=== PATIENT | female | born 1985 ===

== ENCOUNTER 2019-01-15 13:15 | Inpatient (IN) | payer OTHER ==
[~2019-01-15] VITALS: Ht 40.6 cm; Wt 2.7 kg
[2019-01-19] MEDS ORDERED: IBUPROFEN800 MG PO (06:45)
[2019-01-19] MEDS ORDERED: SIMETHICONE125 M1 PO (06:45)
== END 2019-01-19 11:22 | disposition home or self-care (01) | DRG 788 ==
LOC: O/R 13:15 → LDR 01-16 05:16 → OB/GYN 01-16 05:16 → O/R 01-16 09:18 → OB/GYN 01-16 10:59 → LDR 01-16 13:15 → OB/GYN 01-19 11:22
PROVIDERS: ADMIT Obstetrics & Gynecology
PROC: 4A1HXCZ Monitoring of Products of Conception, Cardiac Rate, External Approach (ICD-10-PCS; 2019-01-16)
PROC: 10D00Z1 Extraction of Products of Conception, Low, Open Approach (ICD-10-PCS; principal; 2019-01-16 07:15)
DX: O82 Encounter for cesarean delivery without indication (principal); Z3A.38 38 weeks gestation of pregnancy; Z37.0 Single live birth